=== PATIENT | male | born 1935 | race Caucasian/White ===

== ENCOUNTER 2018-12-18 16:56 | Inpatient (IN) | payer MEDICARE ==
[~2018-12-18] VITALS: Ht 180.3 cm; Wt 77.6 kg
[~2018-12-18 16:56] MED LIST: METO25TA35 PO; OMEP20CA14 PO; SIMV40TA3 PO; WARF2.5T PO
--- NOTE | 2018-12-18 17:17 | NUR ---
PT. ARRIVES BY [facility] WITH C/O NEAR SYNCOPE WHILE HE WAS IN HIS HOTEL ROOM AT THE [facility]. PT. STATES HE AROSE AND ALMOST FELL TO THE FLOOR SECONDARY TO DIZZINESS. 12 LEAD EKG WAS DONE UPON ARRIVAL. PT. HAS THE CP MONITOR IN PLACE. IV ACCESS WAS ESTABLISHED. PT.'S LUNGS ARE CTA. PT. HAS A HX OF LUNG CA WITH A RIGHT LOBE PNEUMONECTOMY. PT. ALSO HAS A HX OF A STABLE TRIPLE A, A-FIB AND COPD. PT. REMAINS A & O X4. PULSES ARE +2 THROUGHOUT. PT.'S ABD. IS SOFT AND FLAT AND BS + X 4 QUADS. MM ARE DRY. SIDERAILS REMAIN UP X 2 WITH THE CALL LIGHT IN PLACE.
[2018-12-18] MEDS ORDERED: ASPIRIN 81 MG TABLET CHEW PO ONE (17:30)
[2018-12-18 17:41] LABS: BASOPHILS # (AUTO) 0.01 x10^3/uL (0-0.1); BASOPHILS % (AUTO) 0 % (0-1); EOSINOPHILS # (AUTO) 0.08 x10^3/uL (0-0.4); EOSINOPHILS % (AUTO) 1 % (1-7); LYMPHOCYTES % (AUTO) 21 % (22-44); MD NO; MEAN CORPUSCULAR HEMOGLOBIN 33.3 pg (27.5-34.5); MEAN CORPUSCULAR HGB CONC 33.5 g/dL (33.2-36.2); MEAN CORPUSCULAR VOLUME 99.5 fL (81-97); MEAN PLATELET VOLUME 9.5 fL (7.4-10.4); MONOCYTES # (AUTO) 0.25 x10^3/uL (0.2-0.8); MONOCYTES % (AUTO) 5 % (2-9); NEUTROPHILS # (AUTO) 4.05 x10^3/uL (1.8-6.8); NEUTROPHILS % (AUTO) 73 % (42-75); PLATELET COUNT 198 x10^3/uL (130-400); RED BLOOD COUNT 3.89 x10^6/uL (4.38-5.82); RED CELL DISTRIBUTION WIDTH 13.9 % (9.4-14.8)
[2018-12-18] MEDS ORDERED: ASPIRIN 81 MG TABLET CHEW ONE (17:41)
[2018-12-18 17:51] LABS: INTERNATIONAL NORMALIZED RATIO 2.62 (0.93-1.1); PROTHROMBIN TIME 26.5 Seconds (9.6-11.5)
[2018-12-18 17:52] LABS: ALANINE AMINOTRANSFERASE 18 U/L (12-78); ANION GAP 7 mmol/L (5-15); CALCIUM 8.7 mg/dL (8.5-10.1); CHLORIDE 110 mmol/L (98-107); CREATININE 0.74 mg/dL (0.7-1.3)
[2018-12-18 17:57] LABS: ALKALINE PHOSPHATASE 87 U/L (45-117); BILIRUBIN,TOTAL 1.2 mg/dL (0.2-1.0); TROPONIN I < 0.015 ng/mL (0.000-0.045)
--- NOTE | 2018-12-18 18:30 | NUR ---
PT. REMAINS MONITORED. NO COMPLAINTS AT THIS TIME. VSS.
--- NOTE | 2018-12-18 19:02 | NUR ---
REPORT WAS GIVEN TO MARQUIS OWENS ON TELE. PT. IS READY FOR TRANSPORT TO THE FLOOR.
[2018-12-18] MEDS ORDERED: TIOT18CA INH (19:53)
[2018-12-18 19:54] VITALS: BP 156/87
[2018-12-18] MEDS ORDERED: DOCUSATE 100 MG CAPSULE PO PRN (20:30)
[2018-12-18] MEDS ORDERED: ACETAMINOPHEN 325 MG TABLET PO PRN (20:30)
[2018-12-18] MEDS ORDERED: LABETALOL 5MG/ML, 20ML IVPush PRN (20:30)
[2018-12-18] MEDS ORDERED: TEMAZEPAM 15 MG CAPSULE PO PRN (20:30)
[2018-12-18 21:00] VITALS: BP 156/87
[2018-12-18] MEDS ORDERED: WARFARIN 2.5 MG TABLET PO-COUM ONE (21:30)
[2018-12-18] MEDS: ALBUTEROL/IPRATROPIUM 2.5MG/0.5MG, 3 ML NPPB SCH (22:39)
[2018-12-19] VITALS (9 sets, daily range): BP systolic 97–160; BP diastolic 64–92
[2018-12-19 04:56] LABS: BASOPHILS # (AUTO) 0.02 x10^3/uL (0-0.1); BASOPHILS % (AUTO) 0 % (0-1); EOSINOPHILS # (AUTO) 0.17 x10^3/uL (0-0.4); EOSINOPHILS % (AUTO) 3 % (1-7); LYMPHOCYTES # (AUTO) 1.74 x10^3/uL (1-3.4); LYMPHOCYTES % (AUTO) 31 % (22-44); MD NO; MEAN CORPUSCULAR HEMOGLOBIN 33.2 pg (27.5-34.5); MEAN CORPUSCULAR HGB CONC 33.2 g/dL (33.2-36.2); MEAN CORPUSCULAR VOLUME 99.9 fL (81-97); MEAN PLATELET VOLUME 9.9 fL (7.4-10.4); MONOCYTES # (AUTO) 0.36 x10^3/uL (0.2-0.8); MONOCYTES % (AUTO) 6 % (2-9); NEUTROPHILS # (AUTO) 3.39 x10^3/uL (1.8-6.8); NEUTROPHILS % (AUTO) 60 % (42-75); PLATELET COUNT 173 x10^3/uL (130-400); RED BLOOD COUNT 3.76 x10^6/uL (4.38-5.82); RED CELL DISTRIBUTION WIDTH 14.2 % (9.4-14.8)
[2018-12-19 05:06] LABS: INTERNATIONAL NORMALIZED RATIO 2.22 (0.93-1.1); PROTHROMBIN TIME 22.6 Seconds (9.6-11.5)
[2018-12-19 05:09] LABS: ANION GAP 5 mmol/L (5-15); CALCIUM 8.4 mg/dL (8.5-10.1); CHLORIDE 108 mmol/L (98-107)
[2018-12-19 05:20] LABS: CREATININE 0.65 mg/dL (0.7-1.3)
[2018-12-19] MEDS ORDERED: ALBUTEROL/IPRATROPIUM 2.5MG/0.5MG, 3 ML NPPB PRN (07:30)
[2018-12-19] MEDS ORDERED: BUDESONIDE 0.5 MG/2 ML INHA NPPB SCH (09:00)
[2018-12-19] MEDS: ALBUTEROL/IPRATROPIUM 2.5MG/0.5MG, 3 ML NPPB SCH ×2 (10:50→15:00)
[2018-12-19] MEDS ORDERED: OMNIPAQUE 350 MG/ML, 100ML BOTTLE ONE (15:40)
[2018-12-19] MEDS ORDERED: WARFARIN 2.5 MG TABLET PO-COUM ONE (18:00)
== END 2018-12-19 18:15 | disposition home or self-care (01) | DRG 73 ==
LOC: ED 18:20 → EDIP 18:21 → ED 18:28 → 5SO 19:08
PROVIDERS: ADMIT Internal Medicine; ATTEND Internal Medicine
DX: G90.8 Other disorders of autonomic nervous system (principal); I50.31 Acute diastolic (congestive) heart failure; D68.59 Other primary thrombophilia; D53.9 Nutritional anemia, unspecified; E78.5 Hyperlipidemia, unspecified; I36.1 Nonrheumatic tricuspid (valve) insufficiency; I25.10 Atherosclerotic heart disease of native coronary artery without angina pectoris; I48.2 Chronic atrial fibrillation; I49.3 Ventricular premature depolarization; J44.9 Chronic obstructive pulmonary disease, unspecified; K22.70 Barrett's esophagus without dysplasia; Z79.01 Long term (current) use of anticoagulants; Z82.49 Family history of ischemic heart disease and other diseases of the circulatory system; Z90.49 Acquired absence of other specified parts of digestive tract; Z82.5 Family history of asthma and other chronic lower respiratory diseases; Z86.79 Personal history of other diseases of the circulatory system; Z87.891 Personal history of nicotine dependence; Z88.5 Allergy status to narcotic agent
CPT/HCPCS: 36415; 70450; 70496; 70498; 71045; 80048; 80053; 83880; 84443; 84484; 85025; 85610; 93306; 94640; 99285; G0378; J7620; J7626; Q9967